=== PATIENT | female | born 1955 | race Caucasian/White ===

== ENCOUNTER 2019-07-04 08:11 | Inpatient (IN) | payer BC ==
[~2019-07-04] VITALS: Ht 160 cm; Wt 81.6 kg
[~2019-07-04 08:11] MED LIST: DICL1GEL3 TOP; LR 1,000 ML IV ONE; MULT-40 PO; URSO300C3 PO; XALA0.007 OU; XIID5DRO OD; ceFAZolin SOD 2 GM in IV 1 EA IV ONE
[2019-07-04] MEDS ORDERED: TRANEXAMIC ACID 100 MG/ML 10ML VIAL IV ONE (09:15)
[2019-07-04 09:29] LABS: APPEARANCE, URINE CLEAR (CLEAR); BACTERIA, URINE AUTO NEGATIVE (NEGATIVE); BILIRUBIN, URINE AUTO NEGATIVE (NEGATIVE); BLOOD, URINE BLOOD NEGATIVE (NEGATIVE); COLOR, URINE YELLOW (YELLOW); GLUCOSE, URINE (UA) AUTO NEGATIVE (NEGATIVE); KETONE, URINE AUTO NEGATIVE (NEGATIVE); LEUKOCYTE ESTERASE, URINE AUTO 1+ (NEGATIVE); MUCUS, URINE SMALL (NEGATIVE); NITRITE, URINE AUTO NEGATIVE (NEGATIVE); PROTEIN, URINE AUTO NEGATIVE (NEGATIVE); RBC, URINE AUTO 2 /HPF (0-3); SPECIFIC GRAVITY URINE AUTO 1.019 (1.002-1.035); SQUAMOUS EPITHELIAL CELL UR AU 1 /HPF (0-6); UROBILINOGEN, URINE AUTO 0.2 mg/dL (0.0-2.0); WBC, URINE AUTO 3 /HPF (0-3)
[2019-07-04] MEDS ORDERED: dexameTHASONE 4 MG/ML 1ML VIAL (J1100) IV ONE (09:45)
[2019-07-04] MEDS ORDERED: VANCOMYCIN HCL 1,000 MG, VIAL MATE ADAPTER 1 EACH in D5W 250 ML IV ONE (09:45)
[2019-07-04] MEDS ORDERED: CelecoXIB 400 MG CAP PO ONE (10:00)
[2019-07-04] MEDS ORDERED: PREGABALIN 50 MG CAP (LYRICA) PO ONE (10:00)
[2019-07-04] MEDS ORDERED: ACETAMINOPHEN 500 MG TAB PO ONE (10:00)
[2019-07-04] MEDS ORDERED: PERCOCET 5MG/325MG TAB PO ONE (10:00)
[2019-07-04] MEDS ORDERED: ONDANSETRON 4MG/2ML VIAL (J2405) As Ordered ONE (10:06)
[2019-07-04] MEDS ORDERED: propofoL 200 MG/20 ML VIAL As Ordered ONE (10:06)
[2019-07-04] MEDS ORDERED: LIDOCAINE 2% INJ 100 MG/5 ML SDV (FOR ANES.) As Ordered ONE (10:06)
[2019-07-04] MEDS ORDERED: MIDAZOLAM INJ 2 MG/2 ML VIAL (J2250) As Ordered ONE ×3 (10:09→10:43)
[2019-07-04] MEDS ORDERED: fentaNYL 100 MCG/2 ML INJECTION (J3010) As Ordered ONE (10:20)
[2019-07-04] MEDS: MIDAZOLAM INJ 2 MG/2 ML VIAL (J2250) IV SCH ×9 (10:31→17:18)
[2019-07-04] MEDS: fentaNYL 100 MCG/2 ML INJECTION (J3010) IV SCH ×5 (10:31→17:18)
[2019-07-04 10:34] LABS: HEMOGLOBIN A1c 5.4 %
[2019-07-04] MEDS ORDERED: KETOROLAC 30 MG/ML VIAL (J1885) IV ONE (10:45)
[2019-07-04] MEDS ORDERED: MORPHINE 2 MG/ML 1ML VIAL (J2270) IV ONE (10:45)
[2019-07-04] MEDS ORDERED: BUPIVACAINE/EPIN 0.25% 30 ML VIAL IV ONE (10:45)
[2019-07-04] MEDS ORDERED: TRANEXAMIC ACID 100 MG/ML 10ML VIAL As Ordered ONE (10:58)
--- NOTE | 2019-07-04 11:39 | HPE ---
DATE OF ADMISSION: 07/04/2019 CHIEF COMPLAINT: Persistent severe left knee pain due to osteoarthritis. HISTORY OF PRESENT ILLNESS: The patient is a very pleasant 63-year-old female who has been complaining of bilateral knee problems for many years. Her left knee is more symptomatic than her right. The patient as of this point has been treated for bilateral patellar fractures. The right was treated with an open reduction, internal fixation (ORIF). Her left was treated nonoperatively. The patient's right knee is still currently quite tolerable, however, the patient's left knee is effecting activities of daily living. The patient states that she has difficulty walking longer distances and has not been able to walk anywhere near a 1/4 of mile in recent history. The patient states that she has difficulty walking short distance such as a grocery store island. This requires her to hobble. Her pain is achy and throbbing mostly in the anterior knee as well as the medial compartment. The patient denies any mechanical symptoms. She states her pain is achy and throbbing, feels like a toothache and this is worse with any activities, better only with rest. The patient was previously treated extensively with cortisone injections, viscous alimentation, attempts at weight loss reduction, multiple courses of physical therapy as well as Tylenol and nonsteroidal anti-inflammatory drugs (NSAIDs); however, none of these have provided her with any lasting relief. The patient was last seen in my office on 04/14/2019 and educated on the risks and benefits of arthroplasty as well as continuing on the conservative treatment . The patient opted for a left knee arthroplasty. PAST MEDICAL HISTORY: The patient did have a blood clot 25 years ago when , and the patient has autoimmune liver disease. PAST SURGICAL HISTORY: Right patellar ORIF. FAMILY HISTORY: Arthritis, diabetes, liver cancer, and hypothyroid. PRIMARY CARE PROVIDER: Jose Alfredo Marie MD MEDICATIONS: - Urodol SOCIAL HISTORY: The patient denies tobacco use or any excessive alcohol intake or recreational drug use. ALLERGIES: MACROBID. PHYSICAL EXAMINATION: CONSTITUTIONAL: General appearance is well-developed and well-nourished. NEUROLOGIC ORIENTATION: The patient is alert and oriented. PSYCHIATRIC MOOD AND AFFECT: No mood disorder, calm affect. CARDIOVASCULAR: All four extremities are well perfused. The patient has regular rate. She has good capillary refill with normal respiratory effort on pulmonary evaluation. SENSORY EXAMINATION: The patient has no decreased sensation to light touch over her bilateral lower extremities. SKIN: Clean, dry, intact, unexposed skin surfaces, no rashes or sores. The patient's gait continues to be severely antalgic due to left knee pain. The patient's bilateral lower extremities were evaluated. Bilateral hips have symmetric range of motion, stability, and strength without any significant pain. The patient's bilateral knees were then evaluated. The patient's bilateral knees have excellent knee range of motion from 0-130 degrees. Deep flexion did reproduce anterior knee pain bilaterally. This was quite severe on the left and only mild on the right. The patient continued to complain of mid arc range of motion tenderness as well as medial joint line tenderness, and crepitus was felt throughout the entire range of motion of her bilateral knees. Bilateral calves were soft, nontender. Extensor hallucis longus (EHL) flexor hallucis longus (FHL), GSC, and TA were all intact. IMAGING: Imaging which was obtained on 02/13/2019 was re-reviewed. This was bilateral standard Pantoja review as well as a left knee sunrise AP view and a lateral review. The patient had patellofemoral osteoarthritis and medial joint line narrowing consistent with osteoarthritis. On the bilateral standard Pantoja review, the patient had hardware in her right patella consistent with the ORIF that she previously had. ASSESSMENT: The patient is a 63-year-old female with bilateral knee osteoarthritis in the setting of bilateral patellar fractures which are previously treated. The patient's right knee was treated years ago with open reduction, internal fixation. The patient's left knee was treated nonoperatively. The patient has persistent left knee pain due to osteoarthritis which failed to respond to conservative therapies and the patient would like to opt for arthroplasty. PLAN: The patient was again re-educated on risks and benefits of arthroplasty, including the risk of infection, persistent pain, instability, laxity, loss of range of motion, possible wound complication, need for repeat surgeries, as well as possible loss of life or limb. She was educated that improvement is expected, however not guaranteed. The patient would like to proceed with arthroplasty later on today, and the patient is being admitted to the hospital for this. OPERATIVE PLAN: My operative plan will include a left knee arthroplasty. The patient will be on Coumadin for deep venous thrombosis (DVT) prophylaxis postoperatively due to the patient's prior history of a blood clot. The patient will be in the normal pain control category.
[2019-07-04] MEDS ORDERED: dexameTHASONE 4 MG/ML 1ML VIAL (J1100) As Ordered ONE (11:58)
[2019-07-04] MEDS ORDERED: ePHEDrine SULFATE 25 MG/5 ML(5MG/ML) SYRINGE As Ordered ONE (12:41)
[2019-07-04] MEDS ORDERED: ROPIvacaine 0.5% 30 ML INJECTION (J2795 PER 1MG) ONE (13:36)
[2019-07-04] MEDS ORDERED: dexameTHASONE 10 MG/1 ML VIAL PRES.FREE (J1100) ONE (13:36)
[2019-07-04] MEDS ORDERED: LIDOCAINE 1% MDV 20ML VIAL ONE (13:36)
[2019-07-04] MEDS: fentaNYL 100 MCG/2 ML INJECTION (J3010) IV PRN ×4 (13:55→14:10)
[2019-07-04] MEDS ORDERED: PERCOCET 5MG/325MG TAB PO PRN (14:15)
[2019-07-04] MEDS ORDERED: LR 1,000 ML IV SCH (14:15)
[2019-07-04] MEDS ORDERED: ONDANSETRON 4MG/2ML VIAL (J2405) IV PRN ×2 (14:15→14:30)
[2019-07-04] MEDS ORDERED: HYDROMORPHONE HCL 0.5 MG/ 0.5 ML SYRINGE (J1170 PER 1) IV PRN (14:30)
[2019-07-04] MEDS ORDERED: oxyCODONE 5MG TAB PO PRN (14:30)
[2019-07-04] MEDS ORDERED: BISACODYL 10 MG SUPP PR PRN (14:30)
--- NOTE | 2019-07-04 14:42 | REP ---
LEFT KNEE, TWO VIEWS: Two views, left knee are performed. Total knee prosthesis is in good position. Osseous structures are intact and well aligned. Air is seen in the anterior soft tissues. Electronically Signed by Ignacio Cortez MD 07/04/2019 02:50 P
[2019-07-04] MEDS ORDERED: diphenhydrAMINE 25 MG CAP PO PRN (14:45)
--- NOTE | 2019-07-04 15:10 | RO ---
DATE OF PROCEDURE: 07/04/2019 PREPROCEDURE DIAGNOSIS: Left knee osteoarthritis. POSTPROCEDURE DIAGNOSIS: Left knee osteoarthritis. PROCEDURE: Left total knee arthroplasty. SURGEON: Dr. Eula Elizabeth COMPLIANCE EXAMINER: Dr. Cali Andres. ANESTHESIA: Spinal with sedation. ESTIMATED BLOOD LOSS: Minimal. SPECIMENS: None. IMPLANTS: Tamie Triathlon knee system. 2 PS femur an a 3 universal base plate with a 35 asymmetric patella. INDICATIONS FOR PROCEDURE: Patient is a 63-year-old female with everyday pain effecting her activities of daily living due to left knee osteoarthritis. The patient was previously treated extensively in a conservative fashion and opted for a left knee arthroplasty after a thorough discussion of the risks and benefits. DESCRIPTION OF PROCEDURE: The patient was identified in the preoperative area, site was marked and consent was obtained. The patient was brought into the operative theatre and spinal anesthesia was administered. The patient was prepped and draped in the standard sterile fashion. A time-out was performed during which I confirmed that the patient received Ancef, vancomycin, TXA and Decadron. A tourniquet was insufflated. A midline incision was then made. Dissection was carried down to the capsule. Medial parapatellar arthrotomy was then performed. The anterior cruciate ligament (ACL) posterior cruciate ligament (PCL), medial and lateral menisci were then resected. The cartilage was inspected and there was full thickness cartilage lost over the medial condyle of the femur as well as the tibial plateau. There was some mild to moderate osteoarthritis underneath the patella likely related to patient's prior patellar fracture. Using intramedullary instrumentation, a 9 mm 6 degree valgus cut was performed on the femur. Attention was then turned to the tibia. . The tibia was cut taking 9 mm of bone off the left lower effected lateral side. Extension gaps were found to be stable at 13 mm. Attention was then turned to the femur. The femur size was sized to a size 2 femur. External rotation was judged off of the posterior condylar jig as well as right-sided slide of the medial epicondylar axis and the 2 femur was cut. Flexion gaps were also stable at about a 13 mm poly. The box cut was performed. The trial femur was inserted. The tibia was sized to a size 3 tibia and pinned in appropriate external rotation, tried with a 13 poly. The patella was then resurfaced to a 35 asymmetric patella taking 10 mm of bone. With all implants in the knee had mild recurvatum with acceptable stability to varus and valgus stressing. The was trialled with a size 16 poly and the patient had range of motion from 0 to 120+ degrees without any varus or valgus instability and appropriate patellar tracking. The tibia was then completed. All trials were removed. The knee was thoroughly irrigated and prepared for cementing. The final components were then cemented in with a trial 16 poly using two bags of Polyco. Once the cement was allowed to cure, the knee was tested and had excellent stability, excellent patellar tracking and excellent range of motion. The posterior capsule was injected with my anesthetic cocktail. A 3-minute dilute Betadine soak was performed and the final poly was inserted. With all final implants in, the knee again had excellent range of motion, excellent stability and excellent patellar tracking. The arthrotomy was closed with a #1-0 Vicryl and a #1-0 STRATAFIX suture, #2-0 Vicryl was used for the subcu followed by a #3-0 V-Loc suture. The patient was placed into a standard sterile dressing consisting of perennial dressing, 4 x 4s, Webril and meera and transferred to the post anesthesia care unit (PACU) in stable condition. POSTOPERATIVE PLAN: The patient will be weightbearing as tolerated. The patient will be on Coumadin for deep venous thrombosis prophylaxis due to a prior history of deep venous thrombosis. Patient will be in the normal pain control category. Cc: [facility] FAX#: [phone]
--- NOTE | 2019-07-04 15:29 | CR.PDOC ---
General Date of Consultation: Jul 04, 2019 Consultation REASON FOR CONSULTATION/CHIEF COMPLAINT: Medical management of comorbid disease(s) HISTORY OF PRESENT ILLNESS: Patient is a 63-year-old female who is seen in the recovery room S/P left knee replacement. She reports that she has had pain in the left knee for several years now. She fell approximately 2 years ago on some steps. However, her knee was wrapped in an JENNIFER bandage at the time and she does not recall having any imaging done. Patient said that the pain in the knee never truly resolved. She had several steroid injections that were only helpful for a short time but provided no long-term relief. Patient reported that the pain in her left knee is severe in nature, it has worsened over time. She has not been able to complete her activities of daily living for several months now without pain in the left knee. ALLERGIES: Please see below. HOME MEDICATIONS: Please see below. PAST MEDICAL HISTORY: 1. DVT 1984 following childbirth 2. Autoimmune liver disease 3. History of Bilateral patellar fractures, right treated with ORIF PAST SURGICAL HISTORY: 1. Right OR I F for patellar fracture 2. Remote history of foot surgery FAMILY HISTORY: Mother: Arthritis, diabetes Children: Daughter- Hypothyroidism SOCIAL HISTORY: Tobacco use:[Denied] ETOH: [Occasionally, socially] Illicit drug use: [Denied] IV drug use: [Denied] Other relevant social factors: [N/a] REVIEW OF SYSTEMS: Constitutional: Denies: Chills, Fever, Night Sweats Eyes: Denies: Pain ENT: Denies: Head Aches Skin: Denies: Rash Pulmonary: Denies: Dyspnea, Cough Cardiovascular: Denies: Chest Pain, Palpitations, Orthopnea, Paroxysmal Noc. Dyspnea, Lt Headedness Gastrointestinal: Denies: Nausea, Vomiting, Abdominal Pain, Diarrhea Genitourinary: Denies: Dysuria Musculoskeletal: Denies: Neck Pain, Back Pain, Joint Pain, Muscle Pain, Spasms Neurological: Denies: Weakness, Numbness Psych: Reports: Mood Normal; PHYSICAL EXAMINATION: VITAL SIGNS: Please see below. General Exam: Positive: Lethargic, No Acute Distress Eye Exam: Positive: Conjunctiva & lids normal; Negative: Sclera icteric ENT Exam: Positive: Atraumatic, Mucous membr. moist/pink, Pharynx Normal Neck Exam: Positive: Supple; Negative: thyromegaly Chest Exam: Positive: Clear to auscultation, Normal air movement Heart Exam: Positive: Rate Normal, Regular Rhythm, Normal S1, Normal S2; Negative: Murmurs, Rubs Telemetry: Positive: No significant arrhythmia Abdomen Exam: Positive: Normal bowel sounds, Soft; Negative: Tenderness Extremity Exam: Positive: Normal pulses; Negative: Clubbing, Cyanosis, Edema Skin Exam: Positive: Nl turgor and temperature; Negative: Rash Neuro Exam: Positive: Normal Speech Psych Exam: Positive: Mood NL LABORATORY DATA: Please see below. ASSESSMENT/PLAN: 1. Total knee replacement, right - Management per orthopedics - Pain management per orthopedics 2. Remote history of DVT - Warfarin 5 mg per day per orthopedics - Daily INRs 3. Autoimmune liver disease - I do not currently have PCP records for a baseline - Preop labs are non-contributory - No acute intervention Vital Signs/I&O Vital Signs Date Time Temp Pulse Resp B/P (MAP) Pulse Ox O2 Delivery O2 Flow Rate FiO2 07/04/19 14:45 93 16 140/63 (88) 93 Nasal Cannula 2 07/04/19 14:30 98.1 07/04/19 12:58 100 Laboratory Data Labs 24H Laboratory Tests 2 07/04/19 08:53: Erythrocyte Sedimentation Rate 12, Activated Partial Thromboplast Time 33.7, Estimated Mean Plasma Glucose 108, Hemoglobin A1c 5.4, 25-Hydroxy Vitamin D Total 23.4L 07/04/19 09:10: Urine Color YELLOW, Urine Appearance CLEAR, Urine pH 5.0, Urine Specific [place] 1.019, Urine Protein NEGATIVE, Urine Glucose (Auto)(UA) NEGATIVE, Urine Ketones (Auto) NEGATIVE, Urine Blood NEGATIVE, Urine Nitrite NEGATIVE, Urine Bilirubin NEGATIVE, Urine Urobilinogen 0.2, Urine Leukocyte Esterase (Auto) 1+H, Urine WBC (Auto) 3, Urine RBC (Auto) 2, Urine Hyaline Casts (Auto) 0, Urine Bacteria (Auto) NEGATIVE, Urine Squamous Epithelial Cells 1, Urine Mucus (Auto) SMALL, Urine Sperm (Auto) Allergies Coded Allergies: latex (Verified Allergy, Unknown, sensitivity to powder in gloves-causes rash, 07/04/19) Home Medications Scheduled Latanoprost (Xalatan) 0.005% 2.5ML Drops, 1 DROP OU QHS, (Reported) Multivitamin (Multivitamins) 1 Each Tablet, 1 TAB PO DAILY, (Reported) Ursodiol (Ursodiol) 300 Mg Capsule, 300 MG PO BID, (Reported) Scheduled PRN Diclofenac Sodium (Diclofenac Sodium) 1% 100GM Gel..gram., 4 GM TOP QID PRN for PAIN for 5 Days, #1 (Reported) Apply to area of pain BUSHRA TUTTLE PA-C Jul 04, 2019 15:29
[2019-07-04 16:00] VITALS: BP 135/78
[2019-07-04] MEDS ORDERED: TRANEXAMIC ACID INJection 1,000 MG in NS 100 ML IV ONE (16:00)
[2019-07-04] MEDS ORDERED: URSO300C3 PO (16:04)
[2019-07-04 16:30] VITALS: BP 138/74
[2019-07-04] MEDS ORDERED: WARFARIN SOD 5 MG TAB PO SCH (17:00)
[2019-07-04 17:30] VITALS: BP 128/67
[2019-07-04] MEDS: ACETAMINOPHEN 325 MG TAB PO SCH ×2 (17:38→21:54)
[2019-07-04 18:39] VITALS: BP 124/69
[2019-07-04 19:30] VITALS: BP 120/68
[2019-07-04 20:30] VITALS: BP 114/67
[2019-07-04] MEDS ORDERED: SENNA 8.6 MG TAB (SENOKOT) PO SCH (21:00)
[2019-07-04] MEDS ORDERED: LATANOPROST 0.005% OPHTH SOLN 2.5 ML OU SCH (21:00)
[2019-07-04] MEDS: ceFAZolin SOD 2 GM in IV 1 EA IV SCH (21:52)
[2019-07-04] MEDS: ASCORBIC ACID 500 MG TAB PO SCH (21:53)
[2019-07-04] MEDS: ursodioL 300 MG CAP PO SCH (21:53)
[2019-07-04] MEDS: FERROUS SULFATE 325MG TAB PO SCH (21:53)
[2019-07-04] MEDS: DOCUSATE SODIUM 100 MG CAP PO SCH (21:53)
[2019-07-05 02:00] VITALS: BP 149/64
[2019-07-05] MEDS: ceFAZolin SOD 2 GM in IV 1 EA IV SCH (03:42)
[2019-07-05 06:00] VITALS: BP 149/64
[2019-07-05 06:57] LABS: HEMATOCRIT 40.9 % (36.0-47.0); HEMOGLOBIN 13.1 g/dl (12.0-15.5); MEAN CORPUSCULAR HEMOGLOBIN 31.2 pg (27.0-33.0); MEAN CORPUSCULAR VOLUME 97.4 fl (80.0-96.0); PLATELET COUNT, AUTOMATED 193 10^3/uL (150-450); WHITE BLOOD COUNT 10.8 10^3/uL (4.0-10.0)
[2019-07-05 07:07] LABS: INR 1.13; PROTHROMBIN TIME 14.2 SECONDS (11.8-14.0)
[2019-07-05 07:14] LABS: BLOOD UREA NITROGEN 10 MG/DL (7-18); CALCIUM LEVEL 8.2 MG/DL (8.8-10.2); CARBON DIOXIDE LEVEL 31 MEQ/L (21-32); CHLORIDE LEVEL 106 MEQ/L (98-107); CREATININE FOR GFR 0.72 MG/DL (0.55-1.30); GLOMERULAR FILTRATION RATE > 60.0 (>45); GLUCOSE, FASTING 110 MG/DL (70-100); POTASSIUM SERUM 4.2 MEQ/L (3.5-5.1); SODIUM LEVEL 140 MEQ/L (136-145)
--- NOTE | 2019-07-05 08:38 | IPN ---
DATE: 07/05/2019 Lucina is seen while rounding for hospitalists. She is an orthopedic patient. She has no chest pain, shortness of breath, dyspnea on exertion. PHYSICAL EXAM: Blood pressure 149/64. Vital signs are stable. Lungs: Clear. Heart: Regular rhythm. Abdomen: Soft, nontender. Liver is nonpalpable. IMPRESSION: 1. History of deep vein thrombosis (DVT). Anticoagulation per orthopedics. 2. Autoimmune liver disease. 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 Hospitalist Group will not see this patient again during the hospitalization unless a medical condition develops in the interim.
[2019-07-05] MEDS: ACETAMINOPHEN 325 MG TAB PO SCH (08:55)
[2019-07-05] MEDS: ASCORBIC ACID 500 MG TAB PO SCH (08:56)
[2019-07-05] MEDS: ursodioL 300 MG CAP PO SCH (08:56)
[2019-07-05] MEDS: FERROUS SULFATE 325MG TAB PO SCH (08:56)
[2019-07-05] MEDS: DOCUSATE SODIUM 100 MG CAP PO SCH (08:57)
[2019-07-05] MEDS ORDERED: PREGABALIN 75 MG CAP(LYRICA) PO SCH (09:00)
[2019-07-05] MEDS ORDERED: oxyCODONE 10 MG CR TAB PO SCH (09:00)
[2019-07-05] MEDS ORDERED: PANTOPRAZOLE 40MG TAB (PROTONIX) PO SCH (09:00)
[2019-07-05] MEDS ORDERED: MULTIVITAMINS/MINERALS THERAP 1 TAB PO SCH (09:00)
[2019-07-05] MEDS ORDERED: CelecoXIB (CeleBREX) 100 MG CAP PO SCH (09:00)
[2019-07-05] MEDS ORDERED: dexameTHASONE 20 MG/5 ML VIAL (J1100) IV ONE (09:00)
--- NOTE | 2019-07-08 15:43 | DSES ---
DATE OF ADMISSION: 07/04/2019 DATE OF DISCHARGE: 07/05/2019 ATTENDING PHYSICIAN: Dr. Elizabeth ADMISSION DIAGNOSIS: Left knee osteoarthritis. OTHER DIAGNOSES: 1. Autoimmune liver disease. 2. History of blood clot during DISCHARGE DIAGNOSIS: Left knee osteoarthritis status post left total knee arthroplasty. HOSPITAL COURSE: This is a pleasant 63-year-old female with progressively worsening left knee osteoarthritis who was admitted for elective left knee total arthroplasty by Dr. Elizabeth. The surgery was without complications and the hospital course went well. She was weightbearing as tolerated on the left lower extremity with physical therapy per their protocol. Pain was controlled on the day of discharge. She will resume preoperative diet along with oral pain medications for pain control. She will begin Coumadin for deep vein thrombosis (DVT) prophylaxis per protocol along with thromboembolic deterrent (MAGUI) stockings. Postoperative instructions to include, but not limited to wound monitoring were given to the patient. She will follow up in our office in 7-10 days for surgical followup. Please see the medical record for further details.
== END 2019-07-05 13:50 | disposition home or self-care (01) | DRG 302 ==
LOC: M OR 08:11 → M MS5PR 15:55
PROVIDERS: ADMIT Student in an Organized Health Care Education/Training Program; ATTEND Student in an Organized Health Care Education/Training Program
PROC: 0SRD0J9 Replacement of Left Knee Joint with Synthetic Substitute, Cemented, Open Approach (ICD-10-PCS; principal; 2019-07-04 10:30)
DX: M17.12 Unilateral primary osteoarthritis, left knee (principal); Z87.81 Personal history of (healed) traumatic fracture; K76.9 Liver disease, unspecified; Z88.1 Allergy status to other antibiotic agents; Z79.899 Other long term (current) drug therapy